=== PATIENT | female | born 1940 | race Caucasian/White ===

== ENCOUNTER 2019-05-25 19:46 | Emergency (ER) | payer OTHER, MEDICARE ==
[2019-05-25 19:57] VITALS: BP 161/78; PULSE 73; TEMP 98.1; BMI 22.1
[2019-05-25] MEDS ORDERED: ACETAMINOPHEN 325 MG TABLET (FP) PO ONE (20:12)
[2019-05-25] MEDS ORDERED: ACETAMINOPHEN 325 MG TABLET (FP) ONE (20:23)
--- NOTE | 2019-05-25 22:20 | PDOC ---
Documentation entered by Jocelyn Heller SCRIBE, acting as scribe for Brent Duncan MD. Brent Duncan MD: This documentation has been prepared by the Arron nesbitt Xhesika, SCRIBE, under my direction and personally reviewed by me in its entirety. I confirm that the documentation accurately reflects all work, treatment, procedures, and medical decision making performed by me. History of Present Illness - General Chief Complaint: Injury Stated Complaint: RT ANKLE INJURY History Source: Patient Exam Limitations: No Limitations - History of Present Illness Initial Comments: 05/25/19 20:15 The patient is an 79 year old female with a significant PMH of Triple A, TIA ( on plavix and aspirin), RA, hypothyroidism, COPD, spinal stenosis, multiple hernia repairs who presents to the emergency department for R ankle pain s/p fall [employer]. The patient states she was entering [employer] and missed a step she did not realize was there. Pt notes when she fell she felt like she tore something in her ankle. Pt denies hitting head or LOC. Pt denies blurry vision/double vision. The patient denies chest pain, shortness of breath, headache and dizziness. Denies fever, chills, cough, nausea, vomiting, diarrhea and constipation. Denies dysuria, frequency, urgency and hematuria. Allergies: NKDA Past surgical history: B/L total hip replacements. Past History - Past Medical History Allergies/Adverse Reactions: Allergies Allergy/AdvReac Type Severity Reaction Status Date / Time No Known Allergies Allergy Unverified 05/25/19 19:47 Home Medications: Ambulatory Orders Atorvastatin Ca [Lipitor] 10 mg PO HS 05/25/19 Calcium Crb,Cit/D3/Min34/Hans [Citracal + Bone Density Tablet] 1 each PO DAILY 05/25/19 Cholecalciferol (Vitamin D3) [Vitamin D3] 5,000 unit PO ASDIR 05/25/19 Clopidogrel Bisulfate [Plavix] 75 mg PO DAILY 05/25/19 Cyclosporine [Restasis] 1 each OP BID 05/25/19 Fluticasone/Umeclidin/Vilanter [Trelegy Ellipta 100-62.5-25] 1 each IH DAILY Hyoscyamine Sulfate [Hyoscyamine Sulfate ER] 0.125 mg PO DAILY 05/25/19 Levothyroxine [Synthroid -] 100 mcg PO DAILY 05/25/19 Metoprolol Succinate 12.5 mg PO HS 05/25/19 Metoprolol Succinate 25 mg PO AM 05/25/19 Multivitamin,Therapeutic [Thera] 1 each PO DAILY 05/25/19 Oxycodone HCl 5 mg PO PRN PRN 05/25/19 Teriparatide [Forteo] 2.4 ml SQ DAILY 05/25/19 Review of Systems - Review of Systems Able to Perform ROS?: Yes Comments:: 05/25/19 20:17 Constitutional - Pt denies Fever, Chills, weakness, HEENT: denies vision changes, sore throat Respiratory: Denies cough, sob, hemoptysis Cardiac: denies chest pain, palpitations, lightheadedness, leg swelling Abd/GI: denies abd pain, nausea, vomiting, blood per rectum, melena, diarrhea : denies dysuria, frequency, discharge Musculskelatal: + R ankle pain. denies back pain, joint swelling skin: denies bruising, erythema, rash neurological: denies headache, numbness, focal weakness, tingling, ataxia, weakness hematologic: denies anemia, easy bruising, easy bleeding *Physical Exam - Vital Signs Last Vital Signs Temp Pulse Resp BP Pulse Ox 98.1 F 73 18 161/78 100 05/25/19 19:47 05/25/19 19:47 05/25/19 19:47 05/25/19 19:47 05/25/19 19:47 - Physical Exam 05/25/19 20:13 GENERAL: The patient is awake, alert, and fully oriented, Nontoxic - in no acute distress. HEAD: Normocephalic, atraumatic. EYES: extraocular movements intact, sclera anicteric, conjunctiva clear. ENT: Normal voice, Moist mucous membranes. NECK: Normal range of motion, supple LUNGS: Breath sounds equal, clear to auscultation bilaterally. No wheezes, no rhonchi, no rales. HEART: Regular rate and rhythm, normal S1 and S2 without murmur, rub or gallop. ABDOMEN: Soft, nontender, No guarding, no rebound. No CVA tenderness EXTREMITIES: ecchymosis/swelling of lateral aspect of R ankle with diffuse tenderness. no tendenerness or limiations of ROM of bl shoulder/elbow/wrist/knee /hip/ankle with the exception of R ankle. NEUROLOGICAL: No facial assymetry, Normal speech, moving all 4 extremities spontaneously and symmetrically PSYCH: Normal mood, normal affect. SKIN: Warm, Dry, normal turgor, Procedures - Consent Consent obtained: Verbal - Splinting Splint Location: Right: Ankle Hand-Made Type: orthoglass Splint Type: Yes: Posterior Post-Proc Neuro Vasc Exam: normal Shaka Bandage: 4" Sling: No Complications: No Post splint xray: No Good repositioning: Yes ED Treatment Course - RADIOLOGY Radiology Studies Ordered: Category Date Time Status ANKLE & FOOT-RIGHT* [RAD] Stat Radiology 05/25/19 20:11 Ordered Medical Decision Making - Medical Decision Making 05/25/19 20:15 r/o fx tylenol for pain 05/25/19 21:26 Patient's x-rays noted for a distal fibular fracture We will place the patient in a splint Will discharge to follow-up with orthopedics I discussed the physical exam findings, ancillary test results and final diagnoses with the patient. I answered all of the patient's questions. The patient was satisfied with the care received and felt comfortable with the discharge plan and treatment plan. The patient will call their primary care physician within 24 hours to arrange follow-up and will return to the Emergency Department with any new, persistent or worsening symptoms. Discharge - Discharge Information Problems reviewed: Yes Clinical Impression/Diagnosis: Avulsion fracture of distal end of fibula Condition: Stable Disposition: HOME - Admission No - Follow up/Referral Referrals: Theron Banerjee MD [Staff Physician] - - Patient Discharge Instructions Patient Printed Discharge Instructions: DI for Ankle Fracture Additional Instructions: Return to the emergency department immediately with ANY new, persistent or worsening symptoms. Leave the splint on and do not get it wet. Do not bear weight on your injured ankle. You MUST call and follow up with your orthopedics doctor within 3-4 days for further evaluation of your symptoms. Results were discussed with you. Please make sure your doctor reviews the results of your emergency evaluation. Your Emergency Department visit is not complete without a follow up with your doctor. Print Language: DANISH - Post Discharge Activity
== END 2019-05-25 22:48 | disposition home or self-care (01) ==
LOC: FER 19:46
PROC: 2W3CX1Z Immobilization of Right Lower Arm using Splint (ICD-10-PCS; principal; 2019-05-25)
DX: Z96.643 Presence of artificial hip joint, bilateral (principal); S82.831A Other fracture of upper and lower end of right fibula, initial encounter for closed fracture; W18.39XA Other fall on same level, initial encounter; Y93.89 Activity, other specified; Y92.89 Other specified places as the place of occurrence of the external cause
CPT/HCPCS: 73610-TC-RT-FY; 73630-TC-RT-FY; 99282-25

== ENCOUNTER 2021-04-29 11:52 | Emergency (ER) | payer OTHER, MEDICARE ==
[2021-04-29 11:56] VITALS: BP 143/77; PULSE 77; TEMP 98.5; BMI 22.1
== END 2021-04-29 15:28 | disposition home or self-care (01) ==
LOC: FER 11:52
DX: S50.01XA Contusion of right elbow, initial encounter (principal); W19.XXXA Unspecified fall, initial encounter
CPT/HCPCS: 73070-TC-RT-FY; 73523-TC-FY; 99284-25